=== PATIENT | male | born 1945 | race Caucasian/White ===

== ENCOUNTER → 2017-07-03 | Outpatient (CLI) | payer MEDICARE ==
[~2017-07-03] MED LIST: ACE500 PO; ASPI-715 PO; ATEN-1 PO; ATOR10TA24 PO; ATOR20TA22 PO; ATR10 PO; AUG875 PO; CIP500 PO; DOC100 PO; FAM20 PO; FAMO40TA62 PO; FAMO40TA8 PO; FLU60SYR30 IM ONLY; LOR5/325 PO; PHENA200 PO; PNEU0.5D3 IM; TADA20TA33 PO; TOBOD OD; TOLT4CAP13 PO
[2017-07-03 08:26] LABS: PLATELET COUNT, AUTOMATED 207 K/uL (150-450)
== END ==
LOC: LAB 08:04
PROVIDERS: ATTEND Internal Medicine
DX: Z12.5 Encounter for screening for malignant neoplasm of prostate (principal); E78.5 Hyperlipidemia, unspecified; N40.0 Benign prostatic hyperplasia without lower urinary tract symptoms; R73.9 Hyperglycemia, unspecified
CPT/HCPCS: 36415; 81001; 84443; 85025; G0103; 82040; 82247; 82310; 82374; 82435; 82465; 82565; 82947; 83718; 84075; 84132; 84153; 84155; 84295; 84450; 84460; 84478; 84520

== ENCOUNTER 2017-09-12 01:13 | Day surgery (SDC) | payer MEDICARE ==
[~2017-09-12] VITALS: Ht 177.8 cm; Wt 74.4 kg
[~2017-09-12 01:13] MED LIST changes: +VARD20TA31 PO
[2017-09-12] MEDS ORDERED: NORMOSOL R SOLN(*) 1000 ML BAG 1,000 ML IV PRN (09:00)
[2017-09-12] MEDS ORDERED: LIDOCAINE/SOD BICARB 8.4% SYR ID ONE (09:00)
[2017-09-12 09:04] VITALS: BP 129/85
[2017-09-12 11:03] VITALS: BP 116/76
--- NOTE | 2017-09-12 11:12 | Short(Outpt) Discharge Summary ---
Discharge Summary Reason for Hosp/Final Diag: (1) History of colon polyps Status: Chronic Hospital Course & Plan: Colonoscopy with polypectomy x15 completed without problems Departure Discharge to: Home, Self Care Discharge Instructions Home Meds Active Scripts Vardenafil Hcl (LEVITRA) 20 Mg Tablet, 0.5-1 TAB PO QDAY Y for 30 minutes prior to sex, #10 TAB 3 Refills Prov:AZRA MARTINEZ MD 07/05/17 Famotidine (PEPCID) 40 Mg Tablet, 40 MG PO QDAY, #90 TAB 3 Refills Prov:AZRA MARTINEZ MD 07/05/17 Atorvastatin Calcium (LIPITOR) 10 Mg Tablet, 1 TAB PO DAILY, #90 TAB 3 Refills Prov:AZRA MARTINEZ MD 07/05/17 Reported Medications Aspirin (Aspirin) 81 Mg Tablet.dr, 81 MG PO, 0 Refills 08/02/10 Diet: Regular Activity: As Tolerated Special Instructions: Your colonoscopy was completed without any problems and your prep was excellent (Good Job!!). I removed 15 polyps from your colon, all were small. My office will call you in the next week or so and let you know what the polyps are and when your next colonoscopy should be, either 3 or 5 years depending on pathology results. YESENIA SHELDON MD Sep 12, 2017 11:12
[2017-09-12 11:28] VITALS: BP 118/73
[2017-09-12 11:31] VITALS: BP 119/87
== END 2017-09-12 11:45 | disposition home or self-care (01) ==
LOC: OR 01:13
PROVIDERS: ATTEND Surgery
DX: Z12.11 Encounter for screening for malignant neoplasm of colon (principal); D12.2 Benign neoplasm of ascending colon; K63.5 Polyp of colon; K62.1 Rectal polyp
CPT/HCPCS: 88305